=== PATIENT | female | born 1930 | race Caucasian/White ===

== ENCOUNTER 2017-03-07 18:50 | Inpatient (IN) | payer OTHER ==
[~2017-03-07] VITALS: Ht 152.4 cm; Wt 53.6 kg
[~2017-03-07 18:50] MED LIST: AMLODIPINE BESYL5 MG PO; ASPIR 8181 M1 PO; ASPIRIN325 MG PO; ASPIRIN81 M2 PO; BISAC-EVAC10 MG PR; BISACODYL5 MG PO; BYSTOLIC5 MG PO; CALCIUM + VITA1 EACH PO; CARVEDILOL12.5 MG PO; CARVEDILOL25 MG PO; COLACE100 MG PO; DAILY VITAMIN1 EAC8 PO; DECADRON2 MG PO; DUONEB 2.5-0.5 M3 ML PEP; ELIQUIS2.5 MG PO; FAMOTIDINE20 MG PO; FERROUS SULFAT325 MG PO; HYDROCHLOROTH12.5 M3 PO; IRON325 M1 PO; LEVOTHYROXINE100 MCG PO; LEVOXYL75 MCG PO; LISINOPRIL10 MG PO; LISINOPRIL40 MG PO; LO-DOSE ASPIRIN81 M1 PO; NEUTRA-PHOS,1 PACKET PO; NORVASC5 MG PO; OXYCODONE HCL5 MG PO; PLAVIX75 MG PO; PROMETHAZINE HC25 M1 PO; SENNA8.6 MG PO; SIMVASTATIN20 MG PO; SYNTHROID100 MCG PO; WOMEN'S DAILY1 EAC1 PO; XARELTO15 MG PO
[2017-03-07 22:03] LABS: HEMATOCRIT 39.9 % (36.0-46.0); MCHC 32.6 G/DL (30.0-36.0); MCV 89.1 FL (83-99); MEAN PLAT.VOLUME 11.5 uM^3 (9.5-12.4); PLATELET COUNT 116 K/uL (156-360); RBC DIS.WIDTH-CV 14.4 % (11.8-14.6); RBC DIS.WIDTH-SD 46.4 % (39-53); RED BLOOD COUNT 4.48 M/uL (3.80-5.20); WHITE BLOOD COUNT 9.9 K/uL (4.1-10.2)
[2017-03-07 22:09] LABS: PROTHROMBIN TIME 11.5 SEC (10.2-12.9)
[2017-03-07 22:18] LABS: CHLORIDE 105 mEq/L (99-109); POTASSIUM 5.1 mEq/L (3.7-5.4); SODIUM 140 mEq/L (136-147)
[2017-03-07 22:20] LABS: GLUCOSE 95 mg/dL (70-99)
[2017-03-07 22:21] LABS: ANION GAP 13 MEQ/L (2-14)
[2017-03-07 22:24] LABS: GFR ESTIMATE (CALCULATED) 45 mL/min/; PTT 16.6 SEC (25-37)
[2017-03-07 22:25] LABS: UREA NITROGEN (BUN) 46 mg/dL (9-23)
[2017-03-08] VITALS (7 sets, daily range): BP systolic 118–162; BP diastolic 76–92
[2017-03-08 00:07] LABS: TROP-I INTERPRETATION NEGATIVE; TROPONIN-I 0.06 ng/mL (0.0-0.30)
[2017-03-08 05:46] LABS: TROP-I INTERPRETATION NEGATIVE; TROPONIN-I 0.07 ng/mL (0.0-0.30)
[2017-03-08] MEDS ORDERED: HYDROCHLOROTH12.5 M3 PO (11:51)
[2017-03-08] MEDS ORDERED: CARVEDILOL25 MG PO (11:51)
[2017-03-08] MEDS ORDERED: ESSENTIAL WOMA1 EAC1 PO (11:51)
[2017-03-08] MEDS ORDERED: SYNTHROID125 MCG PO (11:51)
[2017-03-08] MEDS ORDERED: ZOCOR20 MG PO (11:51)
[2017-03-08] MEDS ORDERED: PEPCID AC10 MG PO (11:51)
[2017-03-08] MEDS ORDERED: LISINOPRIL5 MG PO (11:51)
[2017-03-08] MEDS ORDERED: DECADRON2 MG PO (11:52)
[2017-03-09] VITALS: BP 122/76
[2017-03-09 02:58] VITALS: BP 143/82
[2017-03-09 06:05] LABS: HEMATOCRIT 33.8 % (36.0-46.0); MCH 29.3 PG (29.0-34.0); MCHC 32.5 G/DL (30.0-36.0); MCV 89.9 FL (83-99); MEAN PLAT.VOLUME 11.9 uM^3 (9.5-12.4); PLATELET COUNT 97 K/uL (156-360); RBC DIS.WIDTH-CV 14.6 % (11.8-14.6); RED BLOOD COUNT 3.76 M/uL (3.80-5.20); WHITE BLOOD COUNT 8.5 K/uL (4.1-10.2)
[2017-03-09 06:12] LABS: ANION GAP 11 MEQ/L (2-14); CHLORIDE 105 MEQ/L (99-109); GFR ESTIMATE (CALCULATED) > 59 mL/min/; GLUCOSE 141 mg/dL (70-99); POTASSIUM 4.3 MEQ/L (3.7-5.4); SAMPLE HEMOLYSIS CHECK 0; SAMPLE ICTERIC CHECK 0; SAMPLE LIPEMIA CHECK 0; SODIUM 137 MEQ/L (136-147); UREA NITROGEN (BUN) 32 mg/dL (9-23)
[2017-03-09 12:15] VITALS: BP 128/84
[2017-03-09 16:02] VITALS: BP 125/78
[2017-03-09 20:00] VITALS: BP 134/96
[2017-03-09 23:00] VITALS: BP 131/81
[2017-03-10 03:45] VITALS: BP 128/75
[2017-03-10 09:20] VITALS: BP 178/104
[2017-03-10 13:10] VITALS: BP 153/96
[2017-03-10 17:12] VITALS: BP 137/78
[2017-03-10 19:00] VITALS: BP 103/71
[2017-03-10 23:00] VITALS: BP 136/81
[2017-03-11] VITALS (8 sets, daily range): BP systolic 114–161; BP diastolic 42–98
[2017-03-11 16:20] LABS: POINT-OF-CARE METER ID UU13113781
[2017-03-11 23:09] LABS: METH RESISTANT S AUREUS PCR NEGATIVE (NEGATIVE)
[2017-03-11 23:11] LABS: PROBE CHECK PASS; SPECIMEN PROCESSING CONTROL PASS
[2017-03-12] VITALS (22 sets, daily range): BP systolic 92–132; BP diastolic 59–96
[2017-03-12 05:16] LABS: HEMATOCRIT 32.7 % (36.0-46.0); MCHC 32.7 G/DL (30.0-36.0); MCV 88.6 FL (83-99); MEAN PLAT.VOLUME 11.5 uM^3 (9.5-12.4); RBC DIS.WIDTH-CV 14.6 % (11.8-14.6); RBC DIS.WIDTH-SD 47.7 % (39-53); RED BLOOD COUNT 3.69 M/uL (3.80-5.20); WHITE BLOOD COUNT 11.1 K/uL (4.1-10.2)
[2017-03-12 05:17] LABS: PLATELET COUNT 159 K/uL (156-360)
[2017-03-12 05:36] LABS: TROP-I INTERPRETATION NEGATIVE; TROPONIN-I 0.09 ng/mL (0.0-0.30)
[2017-03-12 05:55] LABS: ANION GAP 10 MEQ/L (2-14); CHLORIDE 105 MEQ/L (99-109); GFR ESTIMATE (CALCULATED) 50 mL/min/; GLUCOSE 125 mg/dL (70-99); POTASSIUM 3.3 MEQ/L (3.7-5.4); SAMPLE HEMOLYSIS CHECK 0; SAMPLE ICTERIC CHECK 0; SAMPLE LIPEMIA CHECK 0; SODIUM 142 MEQ/L (136-147); UREA NITROGEN (BUN) 38 mg/dL (9-23)
[2017-03-13] VITALS (12 sets, daily range): BP systolic 101–143; BP diastolic 60–73
[2017-03-13 04:35] LABS: EOSINOPHIL (%) 0 % (0-5); HEMATOCRIT 32.8 % (36.0-46.0); IMMATURE GRANULOCYTE (%) 0.8 % (0.0-0.7); IMMATURE GRANULOCYTE COUNT 0.1 K/uL; LYMPHOCYTE COUNT 0.6 K/uL (1.0-2.8); MCH 28.6 PG (29.0-34.0); MCHC 32.3 G/DL (30.0-36.0); MCV 88.4 FL (83-99); MEAN PLAT.VOLUME 11.1 uM^3 (9.5-12.4); MONOCYTE COUNT 0.5 K/uL (0-0.8); NEUTROPHIL (%) 90.6 % (45-76); PLATELET COUNT 142 K/uL (156-360); RBC DIS.WIDTH-CV 14.7 % (11.8-14.6); RED BLOOD COUNT 3.71 M/uL (3.80-5.20); WHITE BLOOD COUNT 12.1 K/uL (4.1-10.2)
[2017-03-13 04:47] LABS: CHLORIDE 102 mEq/L (99-109); POTASSIUM 3.9 mEq/L (3.7-5.4); SODIUM 138 mEq/L (136-147)
[2017-03-13 04:48] LABS: MAGNESIUM 1.5 mg/dL (1.3-2.7)
[2017-03-13 04:49] LABS: GLUCOSE 139 mg/dL (70-99)
[2017-03-13 04:50] LABS: ANION GAP 9 MEQ/L (2-14)
[2017-03-13 04:53] LABS: GFR ESTIMATE (CALCULATED) 50 mL/min/
[2017-03-13 04:54] LABS: UREA NITROGEN (BUN) 41 mg/dL (9-23)
[2017-03-14 04:25] VITALS: BP 125/67
[2017-03-14 07:34] LABS: ANION GAP 8 MEQ/L (2-14); CHLORIDE 99 MEQ/L (99-109); GFR ESTIMATE (CALCULATED) 41 mL/min/; SAMPLE HEMOLYSIS CHECK 0; SAMPLE ICTERIC CHECK 0; SAMPLE LIPEMIA CHECK 0; SODIUM 139 MEQ/L (136-147); UREA NITROGEN (BUN) 37 mg/dL (9-23)
[2017-03-14 07:41] LABS: GLUCOSE 88 mg/dL (70-99)
[2017-03-14 07:57] VITALS: BP 130/71
[2017-03-14 12:07] VITALS: BP 123/71
[2017-03-14 15:56] VITALS: BP 123/77
[2017-03-14 19:16] VITALS: BP 112/75
[2017-03-14 23:57] VITALS: BP 126/68
[2017-03-15 03:02] VITALS: BP 82/53
[2017-03-15 08:34] VITALS: BP 97/54
[2017-03-15 12:09] VITALS: BP 106/56
[2017-03-15] MEDS ORDERED: HYDROCODON-ACE1 EAC7 PO (17:03)
[2017-03-15] MEDS ORDERED: LEVETIRACETAM250 MG PO (17:03)
== END 2017-03-15 19:04 | DRG 25 ==
LOC: EME 18:50 → EDOF 03-08 00:03 → 3EAST 03-08 00:03 → 4EAST 03-08 00:03 → 4WEST 03-08 00:03 → ENRESERV 03-08 00:10 → 4EAST 03-08 01:09 → ENRESERV 03-11 21:13 → 4EAST 03-11 21:14 → 4WEST 03-11 21:45 → ENRESERV 03-13 09:45 → 3EAST 03-13 15:39
PROVIDERS: Emergency Medicine; Hospitalist; Internal Medicine Critical Care Medicine; Neurological Surgery; Nurse Practitioner Family
PROC: 00B20ZZ Excision of Dura Mater, Open Approach (ICD-10-PCS; principal; 2017-03-11)
PROC: 03HY32Z Insertion of Monitoring Device into Upper Artery, Percutaneous Approach (ICD-10-PCS; 2017-03-11)
DX: D32.0 Benign neoplasm of cerebral meninges (principal); G93.6 Cerebral edema; G93.49 Other encephalopathy; I48.2 Chronic atrial fibrillation; J20.9 Acute bronchitis, unspecified; E87.70 Fluid overload, unspecified; R09.02 Hypoxemia; Z53.09 Procedure and treatment not carried out because of other contraindication; E87.6 Hypokalemia; J45.909 Unspecified asthma, uncomplicated; I10 Essential (primary) hypertension; I35.0 Nonrheumatic aortic (valve) stenosis; E03.9 Hypothyroidism, unspecified; I25.10 Atherosclerotic heart disease of native coronary artery without angina pectoris; E78.5 Hyperlipidemia, unspecified; F03.90 Unspecified dementia, unspecified severity, without behavioral disturbance, psychotic disturbance, mood disturbance, and anxiety; Z96.652 Presence of left artificial knee joint; Z95.0 Presence of cardiac pacemaker; Z86.73 Personal history of transient ischemic attack (TIA), and cerebral infarction without residual deficits; Z95.5 Presence of coronary angioplasty implant and graft; Z90.5 Acquired absence of kidney; Z88.1 Allergy status to other antibiotic agents; Z85.528 Personal history of other malignant neoplasm of kidney; Z88.0 Allergy status to penicillin
CPT/HCPCS: 70450; 70460; 71010; 80048; 82948; 83735; 83880; 84484; 85025; 85027; 85610; 85730; 87641; 88307; 88313; 88341 TC; 88342 TC; 93005; 94002; 94640; 94640 76; 94667; 94668; 94799; 95938; 99202; 99281; 99285; C1713; J0330; J1100; J1630; J2060; J2250; J2405; J2710; J2930; J3010; J3480; J7030; J7050; J8540; S0028

== ENCOUNTER 2017-03-21 12:42 | Inpatient (IN) | payer OTHER ==
[~2017-03-21] VITALS: Ht 152.4 cm; Wt 66.0 kg
[~2017-03-21 12:42] MED LIST changes: +ESSENTIAL WOMA1 EAC1 PO; +HYDROCODON-ACE1 EAC7 PO; +LEVETIRACETAM250 MG PO; +LISINOPRIL5 MG PO; +PEPCID AC10 MG PO; +SYNTHROID125 MCG PO; +ZOCOR20 MG PO
[2017-03-21 13:57] LABS: EOSINOPHIL (%) 0 % (0-5); HEMATOCRIT 34.6 % (36.0-46.0); IMMATURE GRANULOCYTE (%) 1.6 % (0.0-0.7); IMMATURE GRANULOCYTE COUNT 0.2 K/uL; LYMPHOCYTE COUNT 1.3 K/uL (1.0-2.8); MCH 29.2 PG (29.0-34.0); MCHC 33.5 G/DL (30.0-36.0); MCV 87.2 FL (83-99); MEAN PLAT.VOLUME 10.7 uM^3 (9.5-12.4); MONOCYTE COUNT 1.2 K/uL (0-0.8); NEUTROPHIL (%) 80.1 % (45-76); RBC DIS.WIDTH-CV 14.8 % (11.8-14.6); RBC DIS.WIDTH-SD 45.5 % (39-53); RED BLOOD COUNT 3.97 M/uL (3.80-5.20); WHITE BLOOD COUNT 13.7 K/uL (4.1-10.2)
[2017-03-21 14:00] LABS: PLATELET COUNT 186 K/uL (156-360)
[2017-03-21 14:07] LABS: CHLORIDE 86 mEq/L (99-109); POTASSIUM 3.9 mEq/L (3.7-5.4); SODIUM 124 mEq/L (136-147)
[2017-03-21 14:09] LABS: GLUCOSE 87 mg/dL (70-99)
[2017-03-21 14:10] LABS: ANION GAP 8 MEQ/L (2-14)
[2017-03-21 14:11] LABS: PROTHROMBIN TIME 11.3 SEC (10.2-12.9)
[2017-03-21 14:13] LABS: GFR ESTIMATE (CALCULATED) > 59 mL/min/
[2017-03-21 14:14] LABS: UREA NITROGEN (BUN) 23 mg/dL (9-23)
[2017-03-21 14:16] LABS: PTT 26.9 SEC (25-37)
[2017-03-21 14:18] LABS: TROP-I INTERPRETATION NEGATIVE; TROPONIN-I 0.05 ng/mL (0.0-0.30)
[2017-03-21] MEDS ORDERED: ZOLOFT50 MG PO (16:11)
[2017-03-21] MEDS ORDERED: CARVEDILOL12.5 MG PO (16:13)
[2017-03-21 16:16] LABS: ADD MIUA? YES; BILIRUBIN NEGATIVE; BLOOD NEGATIVE; COLOR YELLOW ((YELLOW)); GLUCOSE (STRIP) NEGATIVE; KETONES NEGATIVE; LEUKOCYTES NEGATIVE; NITRITE NEGATIVE; PROTEIN (STRIP) NEGATIVE; SPECIFIC GRAVITY 1.016 (1.000-1.030)
[2017-03-21] MEDS ORDERED: MILK OF MAGN PO (16:22)
[2017-03-21 16:33] LABS: BACTERIA NONE SEEN /HPF; EPITHELIAL CELLS RARE /HPF; MUCUS NONE SEEN /LPF; RED BLOOD CELLS 0-5 /HPF (0-5); UCUL ADDED? YES
[2017-03-21 19:33] VITALS: BP 104/61
[2017-03-21 23:52] VITALS: BP 91/52
[2017-03-22 04:27] VITALS: BP 106/65
[2017-03-22 05:22] LABS: EOSINOPHIL (%) 0 % (0-5); HEMATOCRIT 30.8 % (36.0-46.0); IMMATURE GRANULOCYTE (%) 1.3 % (0.0-0.7); IMMATURE GRANULOCYTE COUNT 0.1 K/uL; INSTRUMENT ABS NEUTROPHIL CT 9.3 K/uL; LYMPHOCYTE COUNT 0.9 K/uL (1.0-2.8); MCH 28.9 PG (29.0-34.0); MCHC 33.4 G/DL (30.0-36.0); MCV 86.3 FL (83-99); MEAN PLAT.VOLUME 11.2 uM^3 (9.5-12.4); MONOCYTE (%) 4.3 % (3-12); MONOCYTE COUNT 0.5 K/uL (0-0.8); NEUTROPHIL (%) 85.7 % (45-76); NEUTROPHIL COUNT 9.3 K/uL (1.8-6.4); PLATELET COUNT 150 K/uL (156-360); RBC DIS.WIDTH-CV 14.9 % (11.8-14.6); RBC DIS.WIDTH-SD 45.1 % (39-53); RED BLOOD COUNT 3.57 M/uL (3.80-5.20); WHITE BLOOD COUNT 10.9 K/uL (4.1-10.2)
[2017-03-22 05:50] LABS: ANION GAP 7 MEQ/L (2-14); CHLORIDE 93 MEQ/L (99-109); GFR ESTIMATE (CALCULATED) > 59 mL/min/; GLUCOSE 84 mg/dL (70-99); POTASSIUM 4.1 MEQ/L (3.7-5.4); SAMPLE HEMOLYSIS CHECK 0; SAMPLE ICTERIC CHECK 0; SAMPLE LIPEMIA CHECK 0; SODIUM 129 MEQ/L (136-147); UREA NITROGEN (BUN) 19 mg/dL (9-23)
[2017-03-22 06:23] LABS: TOBRAMYCIN (TROUGH) 5.6 MCG/ML (0-1.0)
[2017-03-22 08:30] VITALS: BP 102/60
[2017-03-22 09:15] LABS: URIC ACID 4.4 mg/dL (3.1-9.2)
[2017-03-22 12:30] VITALS: BP 125/74
[2017-03-22 19:15] VITALS: BP 137/64
[2017-03-23 00:26] VITALS: BP 120/70
[2017-03-23 04:28] VITALS: BP 129/65
[2017-03-23 05:34] LABS: EOSINOPHIL (%) 0.1 % (0-5); HEMATOCRIT 31.5 % (36.0-46.0); IMMATURE GRANULOCYTE (%) 1.3 % (0.0-0.7); IMMATURE GRANULOCYTE COUNT 0.1 K/uL; INSTRUMENT ABS NEUTROPHIL CT 7.3 K/uL; LYMPHOCYTE COUNT 2.2 K/uL (1.0-2.8); MCH 29.1 PG (29.0-34.0); MONOCYTE (%) 9.5 % (3-12); NEUTROPHIL (%) 68.2 % (45-76); NEUTROPHIL COUNT 7.3 K/uL (1.8-6.4); PLATELET COUNT 134 K/uL (156-360); RBC DIS.WIDTH-CV 15.6 % (11.8-14.6); RBC DIS.WIDTH-SD 47.6 % (39-53); RED BLOOD COUNT 3.58 M/uL (3.80-5.20); WHITE BLOOD COUNT 10.7 K/uL (4.1-10.2)
[2017-03-23 05:59] LABS: ANION GAP 7 MEQ/L (2-14); CHLORIDE 96 MEQ/L (99-109); GFR ESTIMATE (CALCULATED) > 59 mL/min/; GLUCOSE 76 mg/dL (70-99); POTASSIUM 3.9 MEQ/L (3.7-5.4); SAMPLE HEMOLYSIS CHECK 0; SAMPLE ICTERIC CHECK 0; SAMPLE LIPEMIA CHECK 0; SODIUM 131 MEQ/L (136-147); UREA NITROGEN (BUN) 17 mg/dL (9-23); URIC ACID 3.6 mg/dL (3.1-9.2)
[2017-03-23 07:08] VITALS: BP 119/55
[2017-03-23 12:55] VITALS: BP 129/40
[2017-03-23 16:01] VITALS: BP 118/67
[2017-03-23 22:50] VITALS: BP 130/79
[2017-03-24 06:07] LABS: EOSINOPHIL (%) 0 % (0-5); HEMATOCRIT 33.5 % (36.0-46.0); IMMATURE GRANULOCYTE (%) 1.1 % (0.0-0.7); IMMATURE GRANULOCYTE COUNT 0.1 K/uL; INSTRUMENT ABS NEUTROPHIL CT 7.6 K/uL; LYMPHOCYTE COUNT 1.3 K/uL (1.0-2.8); MCH 29.9 PG (29.0-34.0); MCHC 33.4 G/DL (30.0-36.0); MCV 89.3 FL (83-99); MEAN PLAT.VOLUME 10.6 uM^3 (9.5-12.4); MONOCYTE (%) 4.6 % (3-12); MONOCYTE COUNT 0.4 K/uL (0-0.8); NEUTROPHIL (%) 80.9 % (45-76); NEUTROPHIL COUNT 7.6 K/uL (1.8-6.4); PLATELET COUNT 125 K/uL (156-360); RBC DIS.WIDTH-SD 50.3 % (39-53); RED BLOOD COUNT 3.75 M/uL (3.80-5.20); WHITE BLOOD COUNT 9.4 K/uL (4.1-10.2)
[2017-03-24 06:21] LABS: ANION GAP 7 MEQ/L (2-14); CHLORIDE 99 MEQ/L (99-109); GFR ESTIMATE (CALCULATED) > 59 mL/min/; GLUCOSE 87 mg/dL (70-99); POTASSIUM 4.4 MEQ/L (3.7-5.4); SAMPLE HEMOLYSIS CHECK 0; SAMPLE ICTERIC CHECK 0; SAMPLE LIPEMIA CHECK 0; SODIUM 133 MEQ/L (136-147); UREA NITROGEN (BUN) 18 mg/dL (9-23)
[2017-03-24 08:24] VITALS: BP 132/76
[2017-03-24 15:29] VITALS: BP 115/59
[2017-03-24 23:50] VITALS: BP 123/84
[2017-03-25 06:03] LABS: EOSINOPHIL (%) 0 % (0-5); HEMATOCRIT 33.9 % (36.0-46.0); IMMATURE GRANULOCYTE (%) 0.8 % (0.0-0.7); IMMATURE GRANULOCYTE COUNT 0.1 K/uL; INSTRUMENT ABS NEUTROPHIL CT 9.4 K/uL; LYMPHOCYTE COUNT 1.3 K/uL (1.0-2.8); MCHC 32.4 G/DL (30.0-36.0); MCV 89.4 FL (83-99); MEAN PLAT.VOLUME 10.4 uM^3 (9.5-12.4); MONOCYTE (%) 5.9 % (3-12); MONOCYTE COUNT 0.7 K/uL (0-0.8); NEUTROPHIL (%) 82.2 % (45-76); NEUTROPHIL COUNT 9.4 K/uL (1.8-6.4); PLATELET COUNT 123 K/uL (156-360); RBC DIS.WIDTH-CV 16.4 % (11.8-14.6); RBC DIS.WIDTH-SD 52.3 % (39-53); RED BLOOD COUNT 3.79 M/uL (3.80-5.20); WHITE BLOOD COUNT 11.4 K/uL (4.1-10.2)
[2017-03-25 06:26] LABS: ANION GAP 8 MEQ/L (2-14); CHLORIDE 98 MEQ/L (99-109); GFR ESTIMATE (CALCULATED) 56 mL/min/; GLUCOSE 109 mg/dL (70-99); POTASSIUM 4.8 MEQ/L (3.7-5.4); SAMPLE HEMOLYSIS CHECK 0; SAMPLE ICTERIC CHECK 0; SAMPLE LIPEMIA CHECK 0; SODIUM 132 MEQ/L (136-147); UREA NITROGEN (BUN) 20 mg/dL (9-23)
[2017-03-25 07:27] VITALS: BP 127/84
[2017-03-25 15:20] VITALS: BP 127/82
== END 2017-03-25 17:03 | DRG 640 ==
LOC: EME 12:42 → EDOF 15:23 → 4EAST 15:23 → ENRESERV 15:27 → EDOF 15:42 → ENRESERV 15:44 → 4EAST 19:14 → ENRESERV 03-23 10:33 → 5EAST 03-23 12:37
PROVIDERS: Emergency Medicine; Hospitalist; Internal Medicine; Internal Medicine Nephrology
DX: E87.1 Hypo-osmolality and hyponatremia (principal); E22.2 Syndrome of inappropriate secretion of antidiuretic hormone; D32.9 Benign neoplasm of meninges, unspecified; I50.30 Unspecified diastolic (congestive) heart failure; I48.91 Unspecified atrial fibrillation; R41.0 Disorientation, unspecified; S00.03XA Contusion of scalp, initial encounter; S40.021A Contusion of right upper arm, initial encounter; S80.12XA Contusion of left lower leg, initial encounter; E78.5 Hyperlipidemia, unspecified; E03.9 Hypothyroidism, unspecified; K21.9 Gastro-esophageal reflux disease without esophagitis; C64.9 Malignant neoplasm of unspecified kidney, except renal pelvis; I11.0 Hypertensive heart disease with heart failure; R55 Syncope and collapse; I25.10 Atherosclerotic heart disease of native coronary artery without angina pectoris; H91.90 Unspecified hearing loss, unspecified ear; D72.829 Elevated white blood cell count, unspecified; G93.6 Cerebral edema; G93.89 Other specified disorders of brain; E86.1 Hypovolemia; I35.0 Nonrheumatic aortic (valve) stenosis; D18.00 Hemangioma unspecified site; D49.6 Neoplasm of unspecified behavior of brain; F32.9 Major depressive disorder, single episode, unspecified; J45.909 Unspecified asthma, uncomplicated; G40.909 Epilepsy, unspecified, not intractable, without status epilepticus; Z79.899 Other long term (current) drug therapy; F41.9 Anxiety disorder, unspecified; Z95.0 Presence of cardiac pacemaker; Z85.528 Personal history of other malignant neoplasm of kidney; Z86.011 Personal history of benign neoplasm of the brain; Z86.73 Personal history of transient ischemic attack (TIA), and cerebral infarction without residual deficits; Z95.5 Presence of coronary angioplasty implant and graft
CPT/HCPCS: 70450; 71010; 80048; 80200; 81003; 83605; 83930; 83935; 84300; 84443; 84484; 84550; 85025; 85610; 85730; 87040; 87070; 87086; 87205; 87502; 93005; 95819; 99281; 99285; J1644; J1953; J2060; J2543; J3260; J3370; J7030; J7050; J8540

== ENCOUNTER → 2017-04-07 | Outpatient (CLI) | payer OTHER ==
[~2017-04-07] MED LIST changes: +MILK OF MAGN PO; +ZOLOFT50 MG PO
== END | disposition home or self-care (01) ==
LOC: RAD 13:41
DX: D32.9 Benign neoplasm of meninges, unspecified (principal); Z98.890 Other specified postprocedural states
CPT/HCPCS: 70450

== ENCOUNTER → 2017-04-27 | Outpatient (CLI) | payer OTHER | END | disposition home or self-care (01) | LOC: RAD 13:00 | DX: Z98.890 Other specified postprocedural states (principal) | CPT/HCPCS: 70450 ==

== ENCOUNTER 2017-05-09 19:24 | Inpatient (IN) | payer OTHER ==
[~2017-05-09] VITALS: Ht 152.4 cm; Wt 70.4 kg
[2017-05-09 20:35] LABS: HEMATOCRIT 35.6 % (36.0-46.0); HEMOGLOBIN 11.1 G/DL (11.9-15.5); MCH 28.2 PG (29.0-34.0); MCHC 31.2 G/DL (30.0-36.0); MCV 90.4 FL (83-99); PLATELET COUNT 236 K/uL (156-360); RBC DIS.WIDTH-CV 15.9 % (11.8-14.6); RBC DIS.WIDTH-SD 52.7 % (39-53); RED BLOOD COUNT 3.94 M/uL (3.80-5.20); WHITE BLOOD COUNT 16.7 K/uL (4.1-10.2)
[2017-05-09 20:41] LABS: INTER. NORMALIZED RATIO 1.3
[2017-05-09 20:43] LABS: ALBUMIN 3.2 g/dL (3.2-4.8)
[2017-05-09 20:44] LABS: CHLORIDE 103 mEq/L (99-109); POTASSIUM 4.3 mEq/L (3.7-5.4); PTT 27.2 SEC (25-37); SODIUM 138 mEq/L (136-147)
[2017-05-09 20:46] LABS: GLUCOSE 169 mg/dL (70-99); TOTAL PROTEIN 6.2 g/dL (6.4-8.3)
[2017-05-09 20:48] LABS: TOTAL BILIRUBIN 0.7 mg/dL (0.0-1.0)
[2017-05-09 20:49] LABS: ALKALINE PHOSPHATASE 68 IU/L (3-129)
[2017-05-09 20:50] LABS: CREATININE 0.9 mg/dL (0.6-1.3); GFR ESTIMATE (CALCULATED) > 59 mL/min/
[2017-05-09 20:51] LABS: AST (GOT) 18 IU/L (2-34); UREA NITROGEN (BUN) 16 mg/dL (9-23)
[2017-05-09 20:53] LABS: ALT (GPT) 8 IU/L (3-49)
[2017-05-09 20:55] LABS: TROP-I INTERPRETATION NEGATIVE; TROPONIN-I 0.02 ng/mL (0.0-0.30)
[2017-05-09 22:08] LABS: APPEARANCE SL.HAZY ((CLEAR)); BILIRUBIN NEGATIVE; BLOOD NEGATIVE; COLOR YELLOW ((YELLOW)); GLUCOSE (STRIP) NEGATIVE; KETONES NEGATIVE; LEUKOCYTES NEGATIVE; NITRITE NEGATIVE; PROTEIN (STRIP) 100; UROBILINOGEN 0.2 MG/DL (0.2-1.0)
[2017-05-09 22:18] LABS: BACTERIA NONE SEEN /HPF; EPITHELIAL CELLS RARE /HPF; MUCUS 2+ /LPF; UCUL ADDED? NO; WHITE BLOOD CELLS 0-5 /HPF (0-5)
[2017-05-09] MEDS ORDERED: ELIQUIS2.5 MG PO (22:41)
[2017-05-09] MEDS ORDERED: COREG6.25 M1 PO (22:42)
[2017-05-09] MEDS ORDERED: ZOLOFT25 MG PO (22:43)
[2017-05-09] MEDS ORDERED: PEPCID20 MG PO (22:44)
[2017-05-09 23:07] LABS: BASE EXCESS 3.6 mEq/L (-3 to +3); BICARBONATE 29.6 mEq/L (22-26); CARBOXY HGB 2.2 % (0-5); COMMENTS - BLOOD GASES A+C+; DEVICE NC; METHEMOGLOBIN 0.9 % (0-1.5); O2 FLOW 4 L/MIN; PCO2 50 mm Hg (35-45); PO2 96 mm Hg (80-100); SITE LR; TOTAL RESP RATE 24 resp/min; pH 7.38 (7.35-7.45)
[2017-05-10 08:51] LABS: HEMATOCRIT 29.2 % (36.0-46.0); HEMOGLOBIN 9.3 G/DL (11.9-15.5); MCH 28.6 PG (29.0-34.0); MCHC 31.8 G/DL (30.0-36.0); MCV 89.8 FL (83-99); PLATELET COUNT 206 K/uL (156-360); RBC DIS.WIDTH-CV 15.9 % (11.8-14.6); RBC DIS.WIDTH-SD 52.8 % (39-53); RED BLOOD COUNT 3.25 M/uL (3.80-5.20); WHITE BLOOD COUNT 9.7 K/uL (4.1-10.2)
[2017-05-10 09:06] LABS: CHLORIDE 103 mEq/L (99-109); POTASSIUM 4.4 mEq/L (3.7-5.4); SODIUM 137 mEq/L (136-147)
[2017-05-10 09:08] LABS: GLUCOSE 134 mg/dL (70-99)
[2017-05-10 09:12] LABS: GFR ESTIMATE (CALCULATED) 56 mL/min/
[2017-05-10 09:13] LABS: UREA NITROGEN (BUN) 22 mg/dL (9-23)
[2017-05-10 16:40] VITALS: BP 128/67
[2017-05-10 19:52] VITALS: BP 143/96
[2017-05-10 22:45] VITALS: BP 117/57
[2017-05-11 00:14] LABS: APPEARANCE CLOUDY ((CLEAR)); BILIRUBIN NEGATIVE; BLOOD NEGATIVE; COLOR YELLOW ((YELLOW)); GLUCOSE (STRIP) NEGATIVE; KETONES 5; LEUKOCYTES NEGATIVE; NITRITE NEGATIVE; PROTEIN (STRIP) NEGATIVE; UROBILINOGEN 0.2 MG/DL (0.2-1.0)
[2017-05-11 00:25] LABS: SPECIFIC GRAVITY 1.058 (1.000-1.030)
[2017-05-11 01:00] LABS: BACTERIA 1+ /HPF; EPITHELIAL CELLS 1+ /HPF; MUCUS 2+ /LPF; RED BLOOD CELLS NONE SEEN /HPF (0-5); WHITE BLOOD CELLS 0-5 /HPF (0-5)
[2017-05-11 03:35] VITALS: BP 121/80
[2017-05-11 05:33] LABS: HEMATOCRIT 27.6 % (36.0-46.0); HEMOGLOBIN 8.4 G/DL (11.9-15.5); MCH 27.5 PG (29.0-34.0); MCHC 30.4 G/DL (30.0-36.0); MCV 90.2 FL (83-99); PLATELET COUNT 185 K/uL (156-360); RBC DIS.WIDTH-CV 15.9 % (11.8-14.6); RBC DIS.WIDTH-SD 52.2 % (39-53); RED BLOOD COUNT 3.06 M/uL (3.80-5.20); WHITE BLOOD COUNT 10.9 K/uL (4.1-10.2)
[2017-05-11 07:49] VITALS: BP 111/82
[2017-05-11 08:52] LABS: LACTATE DEHYDROGENASE 225 IU/L (20-246); TOTAL PROTEIN 5.5 G/DL (6.4-8.3)
[2017-05-11 12:05] VITALS: BP 125/59
[2017-05-11 14:45] LABS: TYPE OF FLUID PLEURAL
[2017-05-11 15:19] LABS: BODY FLUID LDH 587 IU/L; BODY FLUID PROTEIN 4.1 G/DL
[2017-05-11 15:41] LABS: APPEARANCE CLOUDY-BLOODY; BODY FLUID RBC'S 2513000 /MM^3 (0-100); BODY FLUID WBC'S 8379 /MM^3 (0-500)
[2017-05-11 16:45] VITALS: BP 112/73
[2017-05-11 16:49] LABS: BODY FLUID EOSINOPHILS 0 % (0-25); MONONUCLEAR WBC'S 19 %; POLYNUCLEAR WBC'S 81 % (0-25)
[2017-05-11 20:03] VITALS: BP 97/68
[2017-05-11 22:17] VITALS: BP 134/73
[2017-05-12 04:34] VITALS: BP 108/72
[2017-05-12 05:58] LABS: HEMATOCRIT 26.2 % (36.0-46.0); MCH 27.9 PG (29.0-34.0); MCHC 30.5 G/DL (30.0-36.0); MCV 91.3 FL (83-99); PLATELET COUNT 147 K/uL (156-360); RBC DIS.WIDTH-CV 16.2 % (11.8-14.6); RBC DIS.WIDTH-SD 54.2 % (39-53); RED BLOOD COUNT 2.87 M/uL (3.80-5.20); WHITE BLOOD COUNT 9.9 K/uL (4.1-10.2)
[2017-05-12 08:09] VITALS: BP 111/62
[2017-05-12 11:38] LABS: BASE EXCESS 3.8 mEq/L (-3 to +3); BICARBONATE 31.5 mEq/L (22-26); CARBOXY HGB 2.8 % (0-5); METHEMOGLOBIN 1.3 % (0-1.5)
[2017-05-12 11:39] LABS: PCO2 67 mm Hg (35-45); PO2 70 mm Hg (80-100)
[2017-05-12 11:41] LABS: DEVICE NC; O2 FLOW 3 L/MIN; SITE RR; TOTAL RESP RATE 22 resp/min; pH 7.28 (7.35-7.45)
[2017-05-12 12:01] VITALS: BP 114/54
[2017-05-12 13:27] LABS: BASE EXCESS 1.9 mEq/L (-3 to +3); BICARBONATE 28.1 mEq/L (22-26); CARBOXY HGB 2.8 % (0-5); METHEMOGLOBIN 1.5 % (0-1.5); PCO2 52 mm Hg (35-45); PO2 64 mm Hg (80-100); SITE RR; pH 7.34 (7.35-7.45)
[2017-05-12 13:28] LABS: DEVICE BIPAP; O2 FLOW 6 L/MIN; TOTAL RESP RATE 16 resp/min
[2017-05-12 13:30] LABS: CHLORIDE 99 MEQ/L (99-109); POTASSIUM 4.5 MEQ/L (3.7-5.4); SODIUM 137 MEQ/L (136-147)
[2017-05-12 13:35] LABS: CREATININE 1.1 MG/DL (0.6-1.3); GFR ESTIMATE (CALCULATED) 50 mL/min/; GLUCOSE 119 mg/dL (70-99); UREA NITROGEN (BUN) 39 mg/dL (9-23)
[2017-05-12 17:48] VITALS: BP 114/71
[2017-05-12 20:15] VITALS: BP 112/56
[2017-05-12 20:49] LABS: BODY FLUID PH 7.5 (())
[2017-05-13] VITALS (7 sets, daily range): BP systolic 98–141; BP diastolic 57–83
[2017-05-13 05:56] LABS: HEMATOCRIT 26.7 % (36.0-46.0); HEMOGLOBIN 8.2 G/DL (11.9-15.5); MCH 28.2 PG (29.0-34.0); MCHC 30.7 G/DL (30.0-36.0); MCV 91.8 FL (83-99); NRBC (%) 0.2 /100 WBC (0-0); PLATELET COUNT 156 K/uL (156-360); RBC DIS.WIDTH-CV 16.3 % (11.8-14.6); RBC DIS.WIDTH-SD 54.2 % (39-53); RED BLOOD COUNT 2.91 M/uL (3.80-5.20); WHITE BLOOD COUNT 9.1 K/uL (4.1-10.2)
[2017-05-13 06:18] LABS: CHLORIDE 99 MEQ/L (99-109); CREATININE 1.3 MG/DL (0.6-1.3); GFR ESTIMATE (CALCULATED) 41 mL/min/; GLUCOSE 104 mg/dL (70-99); POTASSIUM 4.5 MEQ/L (3.7-5.4); SODIUM 139 MEQ/L (136-147); UREA NITROGEN (BUN) 45 mg/dL (9-23)
[2017-05-13 09:14] LABS: BASE EXCESS 1.9 mEq/L (-3 to +3); BICARBONATE 29.4 mEq/L (22-26); CARBOXY HGB 2.9 % (0-5); METHEMOGLOBIN 1.6 % (0-1.5); PCO2 64 mm Hg (35-45); PO2 101 mm Hg (80-100)
[2017-05-13 09:15] LABS: COMMENTS - BLOOD GASES NAC+RN NOTIFIED; DEVICE NC; O2 FLOW 6 L/MIN; SITE RR; TOTAL RESP RATE 20 resp/min
[2017-05-13 09:16] LABS: pH 7.27 (7.35-7.45)
[2017-05-13 12:56] LABS: BASE EXCESS 2.1 mEq/L (-3 to +3); BICARBONATE 28.5 mEq/L (22-26); CARBOXY HGB 2.6 % (0-5); COMMENTS - BLOOD GASES NAC+; CONTINUOUS POS AIRWAY PRESSURE 8 cm H2O; DEVICE BIPAP; O2 FLOW 6 L/MIN; PCO2 54 mm Hg (35-45); PO2 76 mm Hg (80-100); PRESSURE CONTROL VENTILATION 12 CM H20; SITE RR; TOTAL RESP RATE 24 resp/min; pH 7.33 (7.35-7.45)
[2017-05-13 15:09] LABS: BASE EXCESS 1.3 mEq/L (-3 to +3); BICARBONATE 27.8 mEq/L (22-26); CARBOXY HGB 2.7 % (0-5); COMMENTS - BLOOD GASES A+C+; METHEMOGLOBIN 1.4 % (0-1.5); O2 FLOW 6 L/MIN; PCO2 54 mm Hg (35-45); PO2 82 mm Hg (80-100); SITE RA; pH 7.32 (7.35-7.45)
[2017-05-13 15:10] LABS: DEVICE BiPAP; PEEP 8 CM/H20; PRES. SUPPORT 12 CM/H2O; TOTAL RESP RATE 22 resp/min
[2017-05-13 15:46] LABS: CHLORIDE 101 MEQ/L (99-109); POTASSIUM 4.6 MEQ/L (3.7-5.4); SODIUM 139 MEQ/L (136-147)
[2017-05-13 15:51] LABS: CREATININE 1.2 MG/DL (0.6-1.3); GFR ESTIMATE (CALCULATED) 45 mL/min/; GLUCOSE 99 mg/dL (70-99); UREA NITROGEN (BUN) 52 mg/dL (9-23)
[2017-05-13 15:52] LABS: TROP-I INTERPRETATION NEGATIVE; TROPONIN-I 0.02 ng/mL (0.0-0.30)
[2017-05-13 16:34] LABS: BASOPHIL (%) 0 % (0-1); EOSINOPHIL (%) 0 % (0-5); HEMATOCRIT 25.8 % (36.0-46.0); IMMATURE GRANULOCYTE (%) 0.8 % (0.0-0.7); LYMPHOCYTE (%) 9.9 % (15-42); LYMPHOCYTE COUNT 0.7 K/uL (1.0-2.8); MCH 28.7 PG (29.0-34.0); MCV 92.5 FL (83-99); MONOCYTE (%) 7.6 % (3-12); MONOCYTE COUNT 0.6 K/uL (0-0.8); NEUTROPHIL (%) 81.7 % (45-76); NEUTROPHIL COUNT 6.1 K/uL (1.8-6.4); NRBC (%) 0.5 /100 WBC (0-0); PLATELET COUNT 141 K/uL (156-360); RBC DIS.WIDTH-CV 16.3 % (11.8-14.6); RED BLOOD COUNT 2.79 M/uL (3.80-5.20); WHITE BLOOD COUNT 7.5 K/uL (4.1-10.2)
[2017-05-13 17:56] LABS: BASE EXCESS 2.1 mEq/L (-3 to +3); BICARBONATE 28.5 mEq/L (22-26); CARBOXY HGB 2.5 % (0-5); METHEMOGLOBIN 1.5 % (0-1.5); PCO2 54 mm Hg (35-45); pH 7.33 (7.35-7.45)
[2017-05-13 17:57] LABS: COMMENTS - BLOOD GASES A+C+; DEVICE BiPAP; O2 FLOW 6 L/MIN; PEEP 8 CM/H20; PO2 64 mm Hg (80-100); PRES. SUPPORT 12 CM/H2O; SITE LA; TOTAL RESP RATE 20 resp/min
[2017-05-14] VITALS (10 sets, daily range): BP systolic 87–98; BP diastolic 40–67
[2017-05-14 06:06] LABS: HEMATOCRIT 25.2 % (36.0-46.0); HEMOGLOBIN 7.6 G/DL (11.9-15.5); MCH 27.4 PG (29.0-34.0); MCHC 30.2 G/DL (30.0-36.0); NRBC (%) 0.3 /100 WBC (0-0); PLATELET COUNT 140 K/uL (156-360); RBC DIS.WIDTH-CV 16.2 % (11.8-14.6); RBC DIS.WIDTH-SD 54.1 % (39-53); RED BLOOD COUNT 2.77 M/uL (3.80-5.20); WHITE BLOOD COUNT 6.4 K/uL (4.1-10.2)
[2017-05-14 06:29] LABS: CHLORIDE 103 MEQ/L (99-109); CREATININE 1.3 MG/DL (0.6-1.3); GFR ESTIMATE (CALCULATED) 41 mL/min/; GLUCOSE 147 mg/dL (70-99); POTASSIUM 4.2 MEQ/L (3.7-5.4); SODIUM 139 MEQ/L (136-147); UREA NITROGEN (BUN) 50 mg/dL (9-23)
[2017-05-15] VITALS (7 sets, daily range): BP systolic 103–149; BP diastolic 57–78
[2017-05-15 06:03] LABS: MCH 28.1 PG (29.0-34.0); MCV 90.6 FL (83-99); NRBC (%) 0.7 /100 WBC (0-0); PLATELET COUNT 128 K/uL (156-360); RBC DIS.WIDTH-CV 15.9 % (11.8-14.6); WHITE BLOOD COUNT 7.1 K/uL (4.1-10.2)
[2017-05-15 12:00] LABS: BASE EXCESS 5.1 mEq/L (-3 to +3); BICARBONATE 32.2 mEq/L (22-26); CARBOXY HGB 2.8 % (0-5); METHEMOGLOBIN 1.2 % (0-1.5); pH 7.33 (7.35-7.45)
[2017-05-15 12:01] LABS: COMMENTS - BLOOD GASES C+; DEVICE NC; O2 FLOW 3 L/MIN; PCO2 61 mm Hg (35-45); PO2 87 mm Hg (80-100); SITE RR
[2017-05-16] VITALS: BP 90/46
[2017-05-16 04:45] VITALS: BP 106/64
[2017-05-16 06:27] LABS: HEMATOCRIT 29.4 % (36.0-46.0); HEMOGLOBIN 9.1 G/DL (11.9-15.5); MCV 90.5 FL (83-99); NRBC (%) 0.5 /100 WBC (0-0); PLATELET COUNT 136 K/uL (156-360); RBC DIS.WIDTH-CV 16.1 % (11.8-14.6); RBC DIS.WIDTH-SD 52.6 % (39-53); RED BLOOD COUNT 3.25 M/uL (3.80-5.20); WHITE BLOOD COUNT 7.5 K/uL (4.1-10.2)
[2017-05-16 06:47] LABS: CHLORIDE 102 MEQ/L (99-109); CREATININE 0.9 MG/DL (0.6-1.3); GFR ESTIMATE (CALCULATED) > 59 mL/min/; POTASSIUM 3.4 MEQ/L (3.7-5.4); SODIUM 142 MEQ/L (136-147); UREA NITROGEN (BUN) 32 mg/dL (9-23)
[2017-05-16 06:51] LABS: GLUCOSE 109 mg/dL (70-99)
[2017-05-16 07:08] VITALS: BP 120/73
[2017-05-16 11:12] VITALS: BP 118/71
[2017-05-16 14:11] LABS: BASE EXCESS 8.2 mEq/L (-3 to +3); BICARBONATE 34.5 mEq/L (22-26); CARBOXY HGB 2.5 % (0-5); COMMENTS - BLOOD GASES NAC+; DEVICE CANNULA; METHEMOGLOBIN 1.5 % (0-1.5); O2 FLOW 1 L/MIN; PCO2 57 mm Hg (35-45); PO2 79 mm Hg (80-100); SITE RR; pH 7.39 (7.35-7.45)
[2017-05-16 15:31] VITALS: BP 117/77
[2017-05-16 22:34] VITALS: BP 152/84
[2017-05-17 00:10] VITALS: BP 109/61
[2017-05-17 05:15] VITALS: BP 132/72
[2017-05-17 05:37] LABS: HEMATOCRIT 31.3 % (36.0-46.0); HEMOGLOBIN 9.5 G/DL (11.9-15.5); MCH 27.6 PG (29.0-34.0); MCHC 30.4 G/DL (30.0-36.0); NRBC (%) 0.3 /100 WBC (0-0); RBC DIS.WIDTH-CV 16.1 % (11.8-14.6); RBC DIS.WIDTH-SD 52.5 % (39-53); RED BLOOD COUNT 3.44 M/uL (3.80-5.20); WHITE BLOOD COUNT 10.7 K/uL (4.1-10.2)
[2017-05-17 05:40] LABS: PLATELET COUNT 178 K/uL (156-360)
[2017-05-17 06:04] LABS: CHLORIDE 105 MEQ/L (99-109); CREATININE 0.7 MG/DL (0.6-1.3); GFR ESTIMATE (CALCULATED) > 59 mL/min/; GLUCOSE 119 mg/dL (70-99); SODIUM 144 MEQ/L (136-147); UREA NITROGEN (BUN) 26 mg/dL (9-23)
[2017-05-17 07:27] VITALS: BP 137/91
[2017-05-17 12:30] VITALS: BP 110/87
[2017-05-17 21:00] VITALS: BP 144/80
[2017-05-18 01:06] VITALS: BP 132/74
[2017-05-18 03:06] VITALS: BP 139/80
[2017-05-18 08:30] VITALS: BP 131/89
[2017-05-18 12:18] LABS: HEMATOCRIT 36.2 % (36.0-46.0); HEMOGLOBIN 10.9 G/DL (11.9-15.5); MCH 27.5 PG (29.0-34.0); MCHC 30.1 G/DL (30.0-36.0); MCV 91.4 FL (83-99); NRBC (%) 0.1 /100 WBC (0-0); RBC DIS.WIDTH-CV 16.4 % (11.8-14.6); RBC DIS.WIDTH-SD 53.4 % (39-53); RED BLOOD COUNT 3.96 M/uL (3.80-5.20)
[2017-05-18 12:25] LABS: PLATELET COUNT 278 K/uL (156-360)
[2017-05-18 12:30] VITALS: BP 128/77
[2017-05-18 12:39] LABS: ALBUMIN 2.8 G/DL (3.2-4.8); ALKALINE PHOSPHATASE 58 IU/L (3-129); ALT (GPT) 8 IU/L (3-49); AST (GOT) 17 IU/L (2-34); CHLORIDE 104 MEQ/L (99-109); CREATININE 0.7 MG/DL (0.6-1.3); GFR ESTIMATE (CALCULATED) > 59 mL/min/; GLUCOSE 125 mg/dL (70-99); POTASSIUM 4.3 MEQ/L (3.7-5.4); SODIUM 144 MEQ/L (136-147); TOTAL BILIRUBIN 0.7 MG/DL (0.0-1.0); TOTAL PROTEIN 5.2 G/DL (6.4-8.3); UREA NITROGEN (BUN) 20 mg/dL (9-23)
[2017-05-18 17:32] VITALS: BP 121/63
[2017-05-18 21:00] VITALS: BP 122/76
[2017-05-19] VITALS (9 sets, daily range): BP systolic 85–124; BP diastolic 50–80
[2017-05-19 08:10] LABS: CHLORIDE 106 MEQ/L (99-109); CREATININE 0.6 MG/DL (0.6-1.3); GFR ESTIMATE (CALCULATED) > 59 mL/min/; GLUCOSE 90 mg/dL (70-99); POTASSIUM 4.2 MEQ/L (3.7-5.4); SODIUM 143 MEQ/L (136-147); UREA NITROGEN (BUN) 21 mg/dL (9-23)
[2017-05-19 11:16] LABS: BASOPHIL (%) 0.4 % (0-1); BASOPHIL COUNT 0.1 K/uL (0-0.1); EOSINOPHIL (%) 1.6 % (0-5); EOSINOPHIL COUNT 0.2 K/uL (0-0.3); HEMATOCRIT 34.2 % (36.0-46.0); HEMOGLOBIN 10.1 G/DL (11.9-15.5); IMMATURE GRANULOCYTE (%) 3.5 % (0.0-0.7); LYMPHOCYTE (%) 18.5 % (15-42); LYMPHOCYTE COUNT 2.5 K/uL (1.0-2.8); MCH 27.1 PG (29.0-34.0); MCHC 29.5 G/DL (30.0-36.0); MCV 91.7 FL (83-99); MONOCYTE (%) 7.6 % (3-12); NEUTROPHIL (%) 68.4 % (45-76); NEUTROPHIL COUNT 9.2 K/uL (1.8-6.4); PLATELET COUNT 238 K/uL (156-360); RBC DIS.WIDTH-CV 16.3 % (11.8-14.6); RBC DIS.WIDTH-SD 53.4 % (39-53); RED BLOOD COUNT 3.73 M/uL (3.80-5.20); WHITE BLOOD COUNT 13.4 K/uL (4.1-10.2)
[2017-05-20 02:27] VITALS: BP 120/71
[2017-05-20 08:13] VITALS: BP 124/77
[2017-05-20 12:30] VITALS: BP 105/68
[2017-05-20 17:54] VITALS: BP 112/71
[2017-05-20 20:00] VITALS: BP 120/74
[2017-05-20 23:55] VITALS: BP 112/58
[2017-05-21 04:00] VITALS: BP 114/63
[2017-05-21 06:14] LABS: BASOPHIL (%) 0.2 % (0-1); EOSINOPHIL COUNT 0.2 K/uL (0-0.3); HEMATOCRIT 33.9 % (36.0-46.0); HEMOGLOBIN 10.2 G/DL (11.9-15.5); IMMATURE GRANULOCYTE (%) 1.9 % (0.0-0.7); LYMPHOCYTE (%) 11.7 % (15-42); LYMPHOCYTE COUNT 1.8 K/uL (1.0-2.8); MCH 27.7 PG (29.0-34.0); MCHC 30.1 G/DL (30.0-36.0); MCV 92.1 FL (83-99); MONOCYTE (%) 5.3 % (3-12); MONOCYTE COUNT 0.8 K/uL (0-0.8); NEUTROPHIL (%) 79.9 % (45-76); NEUTROPHIL COUNT 12.3 K/uL (1.8-6.4); PLATELET COUNT 223 K/uL (156-360); RBC DIS.WIDTH-CV 16.5 % (11.8-14.6); RBC DIS.WIDTH-SD 55.3 % (39-53); RED BLOOD COUNT 3.68 M/uL (3.80-5.20); WHITE BLOOD COUNT 15.4 K/uL (4.1-10.2)
[2017-05-21 06:46] LABS: ALBUMIN 2.3 G/DL (3.2-4.8); ALKALINE PHOSPHATASE 63 IU/L (3-129); ALT (GPT) 6 IU/L (3-49); AST (GOT) 11 IU/L (2-34); CHLORIDE 101 MEQ/L (99-109); CREATININE 0.6 MG/DL (0.6-1.3); GFR ESTIMATE (CALCULATED) > 59 mL/min/; GLUCOSE 83 mg/dL (70-99); POTASSIUM 3.8 MEQ/L (3.7-5.4); SODIUM 141 MEQ/L (136-147); TOTAL BILIRUBIN 0.6 MG/DL (0.0-1.0); TOTAL PROTEIN 4.6 G/DL (6.4-8.3); UREA NITROGEN (BUN) 20 mg/dL (9-23)
[2017-05-21 08:50] VITALS: BP 110/67
[2017-05-21 11:57] VITALS: BP 95/65
[2017-05-21 15:36] VITALS: BP 91/55
[2017-05-21 20:00] VITALS: BP 125/59
[2017-05-21 23:55] VITALS: BP 102/61
[2017-05-22 04:00] VITALS: BP 113/59
[2017-05-22 06:03] LABS: BASOPHIL (%) 0.2 % (0-1); EOSINOPHIL (%) 1.7 % (0-5); EOSINOPHIL COUNT 0.2 K/uL (0-0.3); HEMATOCRIT 33.2 % (36.0-46.0); HEMOGLOBIN 10.1 G/DL (11.9-15.5); IMMATURE GRANULOCYTE (%) 2.2 % (0.0-0.7); LYMPHOCYTE (%) 14.3 % (15-42); LYMPHOCYTE COUNT 1.7 K/uL (1.0-2.8); MCH 27.7 PG (29.0-34.0); MCHC 30.4 G/DL (30.0-36.0); MCV 91.2 FL (83-99); MONOCYTE (%) 7.7 % (3-12); MONOCYTE COUNT 0.9 K/uL (0-0.8); NEUTROPHIL (%) 73.9 % (45-76); NEUTROPHIL COUNT 8.9 K/uL (1.8-6.4); PLATELET COUNT 244 K/uL (156-360); RBC DIS.WIDTH-CV 16.8 % (11.8-14.6); RED BLOOD COUNT 3.64 M/uL (3.80-5.20); WHITE BLOOD COUNT 12.1 K/uL (4.1-10.2)
[2017-05-22 06:49] LABS: CHLORIDE 102 MEQ/L (99-109); CREATININE 0.7 MG/DL (0.6-1.3); GFR ESTIMATE (CALCULATED) > 59 mL/min/; POTASSIUM 3.7 MEQ/L (3.7-5.4); SODIUM 142 MEQ/L (136-147); UREA NITROGEN (BUN) 18 mg/dL (9-23)
[2017-05-22 06:52] LABS: GLUCOSE 117 mg/dL (70-99)
[2017-05-22 07:25] VITALS: BP 106/61
[2017-05-22 11:08] VITALS: BP 112/71
[2017-05-22 16:46] VITALS: BP 126/80
[2017-05-22 20:28] VITALS: BP 120/59
[2017-05-22 22:15] VITALS: BP 101/57
[2017-05-23 03:30] VITALS: BP 101/61
[2017-05-23 07:44] VITALS: BP 112/72
[2017-05-23 11:27] VITALS: BP 114/66
[2017-05-23 13:11] LABS: C DIFF TOXIN POSITIVE (NEGATIVE)
[2017-05-23 16:10] VITALS: BP 115/72
[2017-05-23 18:41] VITALS: BP 114/71
[2017-05-23 23:20] VITALS: BP 96/65
[2017-05-24 04:05] VITALS: BP 128/87
[2017-05-24 06:47] LABS: HEMATOCRIT 35.2 % (36.0-46.0); HEMOGLOBIN 10.6 G/DL (11.9-15.5); MCH 27.7 PG (29.0-34.0); MCHC 30.1 G/DL (30.0-36.0); MCV 92.1 FL (83-99); PLATELET COUNT 242 K/uL (156-360); RBC DIS.WIDTH-SD 55.8 % (39-53); RED BLOOD COUNT 3.82 M/uL (3.80-5.20); WHITE BLOOD COUNT 10.9 K/uL (4.1-10.2)
[2017-05-24 07:15] LABS: CHLORIDE 104 MEQ/L (99-109); CREATININE 0.7 MG/DL (0.6-1.3); GFR ESTIMATE (CALCULATED) > 59 mL/min/; GLUCOSE 108 mg/dL (70-99); POTASSIUM 3.5 MEQ/L (3.7-5.4); SODIUM 143 MEQ/L (136-147); UREA NITROGEN (BUN) 13 mg/dL (9-23)
[2017-05-24 07:55] VITALS: BP 108/75
[2017-05-24 12:27] VITALS: BP 100/61
[2017-05-24 20:00] VITALS: BP 130/84
[2017-05-25] VITALS (7 sets, daily range): BP systolic 112–167; BP diastolic 67–109
[2017-05-25] MEDS ORDERED: HYDROCODON-ACE1 EAC7 PO (13:56)
[2017-05-25] MEDS ORDERED: MORPHINE CON20 MG/M1 PO (13:59)
[2017-05-25] MEDS ORDERED: ATIVAN0.5 MG PO (13:59)
[2017-05-26 04:42] VITALS: BP 160/79
[2017-05-26 07:25] VITALS: BP 137/79
[2017-05-26 11:12] VITALS: BP 137/84
[2017-05-26 15:06] VITALS: BP 143/81
[2017-05-27 01:10] VITALS: BP 121/78
[2017-05-27 07:33] VITALS: BP 102/72
[2017-05-27 16:04] VITALS: BP 163/90
[2017-05-28 01:03] VITALS: BP 140/78
[2017-05-28 09:34] VITALS: BP 118/84
[2017-05-28 15:34] VITALS: BP 118/84
== END 2017-05-28 17:50 | DRG 166 ==
LOC: EME → EDBD 19:24 → EME 19:24 → 4EAST 23:28 → EDOF 23:28 → ENRESERV 23:34 → 4EAST 05-10 16:39 → ENRESERV 05-16 12:04 → 4EAST 05-16 14:45 → ENRESERV 05-21 14:07 → CANRESERV 05-21 17:13 → ENRESERV 05-21 17:20 → 5SOUTH 05-23 23:17
PROVIDERS: Emergency Medicine; Family Medicine; Hospitalist; Internal Medicine
PROC: 0W9B30Z Drainage of Left Pleural Cavity with Drainage Device, Percutaneous Approach (ICD-10-PCS; principal; 2017-05-11)
PROC: 0B9G8ZX Drainage of Left Upper Lung Lobe, Via Natural or Artificial Opening Endoscopic, Diagnostic (ICD-10-PCS; 2017-05-12)
PROC: 0B9J8ZX Drainage of Left Lower Lung Lobe, Via Natural or Artificial Opening Endoscopic, Diagnostic (ICD-10-PCS; 2017-05-12)
PROC: 5A09357 Assistance with Respiratory Ventilation, Less than 24 Consecutive Hours, Continuous Positive Airway Pressure (ICD-10-PCS; 2017-05-12)
PROC: 0W9B30Z Drainage of Left Pleural Cavity with Drainage Device, Percutaneous Approach (ICD-10-PCS; 2017-05-13)
PROC: 02HV33Z Insertion of Infusion Device into Superior Vena Cava, Percutaneous Approach (ICD-10-PCS; 2017-05-14)
PROC: 30233N1 Transfusion of Nonautologous Red Blood Cells into Peripheral Vein, Percutaneous Approach (ICD-10-PCS; 2017-05-14)
PROC: 0W9B30Z Drainage of Left Pleural Cavity with Drainage Device, Percutaneous Approach (ICD-10-PCS; 2017-05-16)
PROC: 8E0ZXY6 Isolation (ICD-10-PCS; 2017-05-16)
DX: J96.01 Acute respiratory failure with hypoxia (principal); J96.02 Acute respiratory failure with hypercapnia; J18.9 Pneumonia, unspecified organism; A04.72 Enterocolitis due to Clostridium difficile, not specified as recurrent; T17.890A Other foreign object in other parts of respiratory tract causing asphyxiation, initial encounter; S27.2XXA Traumatic hemopneumothorax, initial encounter; S22.42XA Multiple fractures of ribs, left side, initial encounter for closed fracture; S32.011A Stable burst fracture of first lumbar vertebra, initial encounter for closed fracture; S27.329A Contusion of lung, unspecified, initial encounter; W08.XXXA Fall from other furniture, initial encounter; Y92.129 Unspecified place in nursing home as the place of occurrence of the external cause; I11.0 Hypertensive heart disease with heart failure; I50.32 Chronic diastolic (congestive) heart failure; D62 Acute posthemorrhagic anemia; Z66 Do not resuscitate; Z51.5 Encounter for palliative care; R45.851 Suicidal ideations; I48.0 Paroxysmal atrial fibrillation; I48.2 Chronic atrial fibrillation; F05 Delirium due to known physiological condition; E87.2 Acidosis; I95.9 Hypotension, unspecified; J98.11 Atelectasis; R84.6 Abnormal cytological findings in specimens from respiratory organs and thorax; I25.10 Atherosclerotic heart disease of native coronary artery without angina pectoris; E78.5 Hyperlipidemia, unspecified; E03.9 Hypothyroidism, unspecified; I35.0 Nonrheumatic aortic (valve) stenosis; G40.909 Epilepsy, unspecified, not intractable, without status epilepticus; J45.909 Unspecified asthma, uncomplicated; F03.91 Unspecified dementia, unspecified severity, with behavioral disturbance; F32.9 Major depressive disorder, single episode, unspecified; I87.8 Other specified disorders of veins; M48.061 Spinal stenosis, lumbar region without neurogenic claudication; Z86.011 Personal history of benign neoplasm of the brain; Z86.73 Personal history of transient ischemic attack (TIA), and cerebral infarction without residual deficits; Z95.0 Presence of cardiac pacemaker; Z95.5 Presence of coronary angioplasty implant and graft; Z79.899 Other long term (current) drug therapy
CPT/HCPCS: 32557; 36600; 70450; 71045; 71046; 71250; 71260; 72120; 72128; 72131; 73522; 76604; 76942; 80048; 80048 91; 80053; 81003; 82803; 82948; 83605; 83615; 83615 91; 83986 90; 84155; 84157; 84484; 85025; 85027; 85610; 85730; 86850; 86900; 86901; 86920; 87040; 87070; 87075; 87081; 87116; 87205; 87206; 87278; 87449; 87493; 87641; 88108; 89051; 92610 GN; 93005; 93306; 93971; 94010; 94640; 94640 76; 94660; 94667; 94799; 97530 GP; 99202; 99281; 99285; C1751; C1769; J0692; J1644; J1940; J2060; J2250; J2270; J2997; J3010; J7042; J7050; P9016